=== PATIENT | male | born 1980 | race Two or more races ===

== ENCOUNTER 2021-07-03 08:45 | Emergency (ER) | payer SELFPAY ==
[2021-07-03] MEDS ORDERED: MAG HYDROX/AL HYDROX/SIMETH 30 ML UDC PO STA (09:16)
[2021-07-03] MEDS ORDERED: LIDOCAINE VISCOUS 2% 15 ML UDC MM STA (09:16)
--- NOTE | 2021-07-03 09:18 | ED Physician Documentation ---
PD HPI ABD PAIN - Stated complaint Stated Complaint: ABD PX SENT BY - Chief complaint Chief Complaint: Abd Pain - History obtained from History obtained from: Patient - History of Present Illness Timing - onset: How many days ago (3) Timing - duration: Days (3) Timing - details: Gradual onset, Still present Quality: Aching, Pain Location: Epigastric Radiation: Lower back Improved by: Other (nothing) Associated symptoms: Nausea. No: Vomiting, Diarrhea, Constipation Similar symptoms before: Has not had sx before Recently seen: Clinic - Additional information Additional information: Previously well 40-year-old male has developed some epigastric abdominal pain over the past 3 days. Of his feeling of fullness and discomfort. He has reduced the amount that he is eating and he has not found modifying factors for this. He did try 1 Pepcid AC and he tried some Pepto-Bismol neither of these seem to help. He does state that he has been drinking more than usual drinks wine and he has not been able to do this for the last 2 days. He also indicates that he does not take ibuprofen or Aleve.He was evaluated at the urgent care [facility] (formerly [facility]) and sent to the emergency department for evaluation. He is reporting dark stool. Review of Systems Constitutional: denies: Fever Ears: denies: Ear pain Nose: denies: Congestion Throat: denies: Sore throat Cardiac: denies: Chest pain / pressure Respiratory: denies: Dyspnea, Cough GI: reports: Abdominal Pain, Nausea. denies: Vomiting, Constipation, Diarrhea : denies: Dysuria, Frequency Skin: denies: Rash Musculoskeletal: denies: Neck pain, Back pain, Extremity pain Neurologic: denies: Generalized weakness, Focal weakness, Numbness PD PAST MEDICAL HISTORY - Present Medications Home Medications: Ambulatory Orders Medication Instructions Recorded Confirmed Sucralfate [Carafate] 1 gm PO ACHS #60 tablet 07/03/21 - Allergies Allergies/Adverse Reactions: Allergies Allergy/AdvReac Type Severity Reaction Status Date / Time Sulfa (Sulfonamide Allergy Anaphylaxis Verified 07/03/21 08:57 Antibiotics) PD ED PE NORMAL - Vitals Vital signs reviewed: Yes (normal ) - General General: Alert and oriented X 3, No acute distress, Well developed/nourished - HEENT HEENT: Atraumatic, PERRL, EOMI - Neck Neck: Supple, no meningeal sign, No bony TTP - Cardiac Cardiac: RRR, No murmur - Respiratory Respiratory: No respiratory distress, Clear bilaterally - Abdomen Abdomen: Normal bowel sounds, Soft, Non distended, No organomegaly, Other (mild epigastric tenderness) - Back Back: No CVA TTP, No spinal TTP - Derm Derm: Normal color, Warm and dry, No rash - Extremities Extremities: No deformity, No edema - Neuro Neuro: Alert and oriented X 3, 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, No motor deficit, No sensory deficit, Normal speech Eye Opening: Spontaneous Motor: Obeys Commands Verbal: Oriented GCS Score: 15 - Psych Psych: Normal mood, Normal affect Results - Vitals Vitals: Vital Signs - 24 hr 07/03/21 07/03/21 08:53 09:12 Temperature 36.5 C Heart Rate 65 72 Respiratory 14 16 Rate Blood Pressure 114/75 126/86 H O2 Saturation 99 100 Oxygen O2 Source Room air - Labs Labs: Laboratory Tests 07/03/21 07/03/21 07/03/21 09:09 09:09 09:30 WBC 4.4 L RBC 4.88 Hgb 15.4 Hct 44.0 MCV 90.2 MCH 31.6 H MCHC 35.0 RDW 11.7 L Plt Count 239 MPV 10.0 Neut # (Auto) 2.9 Lymph # (Auto) 1.0 L [place] # (Auto) 0.4 Eos # (Auto) 0.0 Baso # (Auto) 0.0 Absolute Nucleated RBC 0.00 Nucleated RBC % 0.0 Sodium 138 Potassium 3.9 Chloride 101 Carbon Dioxide 28 Anion Gap 9.0 BUN 14 Creatinine 0.9 Estimated GFR (MDRD) 94 Glucose 107 H Calcium 8.5 Total Bilirubin 0.8 AST 25 ALT 18 Alkaline Phosphatase 47 Total Protein 6.9 Albumin 4.1 Globulin 2.8 Albumin/Globulin Ratio 1.5 Lipase 25 Urine Color YELLOW Urine Clarity CLEAR Urine pH 5.5 Ur Specific Colver >=1.030 H Urine Protein NEGATIVE Urine Glucose (UA) NEGATIVE Urine Ketones NEGATIVE Urine Occult Blood NEGATIVE Urine Nitrite NEGATIVE Urine Bilirubin NEGATIVE Urine Urobilinogen 0.2 (NORMAL) Ur Leukocyte Esterase NEGATIVE Ur Microscopic Review NOT INDICATED Urine Culture Comments NOT INDICATED PD MEDICAL DECISION MAKING - ED course Complexity details: reviewed results, re-evaluated patient, considered d ifferential, d/w patient ED course: 40-year-old male with peptic ulcer symptoms is administered a GI cocktail consisting of viscous lidocaine and Mylanta which resolves the symptoms. He subsequently administered Carafate and Protonix. Is diagnosed with gastritis and given instructions for gastritis versus ulcer. We will put him on a course of acid reducing medication and Carafate. I felt the patient's likelihood of bleeding from this was low as his BUN was normal and his blood counts are normal as well. Departure - Departure Disposition: 01 Home, Self Care Clinical Impression: Gastritis Qualifiers: Gastritis type: unspecified gastritis Chronicity: acute Gastritis bleeding: without bleeding Qualified Code(s): K29.00 - Acute gastritis without bleeding Condition: Stable Instructions: ED PUD Vs Gastritis Follow-Up: Fco Harris MD [Provider Admit Priv/Credential] - Prescriptions: Sucralfate [Carafate] 1 gm PO ACHS #60 tablet Comments: Wilder, it looks like you have an irritation to the lining of your stomach or an ulcer and the treatment for these are to use something to reduce the acid in your stomach and the recommendation is to take some Pepcid AC available [id number]. In addition I have prescribed some Carafate which is a barrier medicine that aids in the healing. It has been escribed to [facility] in [facility]. My recommendation is to take these medicines for 2 weeks, reduce the amount of alcohol you are consuming, and if you have recurrence of your symptoms following treatment, follow-up with the primary care doctor for potential referral for endoscopy.
[2021-07-03 09:19] LABS: BASOPHILS % (AUTO) 0.2 %; EOSINOPHILS % (AUTO) 0.7 %; HGB - HEMOGLOBIN 15.4 g/dL (14.0-18.0); LYMPHOCYTES % (AUTO) 23.3 %; MEAN CORPUSCULAR HEMOGLOBIN 31.6 pg (27.0-31.0); MEAN CORPUSCULAR VOLUME 90.2 fL (80.0-94.0); MONOCYTES # (AUTO) 0.4 10^3/uL (0.0-1.0); MONOCYTES % (AUTO) 9.1 %; NEUTROPHILS # (AUTO) 2.9 10^3/uL (1.5-6.6); NEUTROPHILS % (AUTO) 66.5 %; PLT - PLATELET COUNT 239 10^3/uL (130-450); RED BLOOD COUNT 4.88 10^6/uL (4.70-6.10); RED CELL DISTRIBUTION WIDTH 11.7 % (12.0-15.0); WHITE BLOOD COUNT 4.4 x10^3/uL (4.8-10.8)
[2021-07-03 09:31] LABS: ALBUMIN 4.1 g/dL (3.2-5.5); ALBUMIN/GLOBULIN RATIO 1.5 (1.0-2.2); BILIRUBIN,TOTAL 0.8 mg/dL (0.2-1.0); CALCIUM 8.5 mg/dL (8.5-10.3); CREATININE 0.9 mg/dL (0.6-1.2); POTASSIUM 3.9 mmol/L (3.5-5.0); TOTAL PROTEIN 6.9 g/dL (6.7-8.2)
[2021-07-03 09:47] LABS: BILIRUBIN,URINE NEGATIVE (NEGATIVE); GLUCOSE, URINE (UA) NEGATIVE (NEGATIVE); KETONES,URINE (UA) NEGATIVE (NEGATIVE); LEUKOCYTE ESTERASE, URINE NEGATIVE (NEGATIVE); NITRITE,URINE NEGATIVE (NEGATIVE); OCCULT BLOOD,URINE NEGATIVE (NEGATIVE); PH,URINE 5.5 PH (5.0-7.5); PROTEIN,URINE NEGATIVE (NEGATIVE); UROBILINOGEN,URINE 0.2 (NORMAL) E.U./dL (NORMAL)
[2021-07-03 09:50] LABS: CLARITY,URINE CLEAR (CLEAR)
[2021-07-03] MEDS ORDERED: SUCRALFATE 1 GM/10 ML UDC PO STA (09:50)
[2021-07-03] MEDS ORDERED: PANTOPRAZOLE 40 MG VIAL IVP STA (09:50)
[2021-07-03 10:27] VITALS: BP 129/76
== END 2021-07-03 10:27 | disposition home or self-care (01) ==
LOC: ED 08:45
DX: K29.00 Acute gastritis without bleeding (principal)
CPT/HCPCS: 36415; 80053; 81003; 83690; 85025; 96374; 99282; 99283; A9270; 81001; 87086

== ENCOUNTER 2022-04-15 09:19 | Outpatient (CLI) | payer OTHER ==
--- NOTE | 2022-04-15 11:12 | XRAY Report ---
PROCEDURE: Elbow 3 View RT INDICATIONS: R ELBOW PX TECHNIQUE: 3 views of the elbow were acquired. COMPARISON: None FINDINGS: Bones: No fractures or dislocations. A small bony spur is noted at the distal humeral metadiaphysis seen only on the lateral view. No other suspicious bony lesions. Soft tissues: No elbow joint effusion. No suspicious soft tissue calcifications. IMPRESSION: Bony spur at the distal right humeral metadiaphysis. If the patient endorses focal pain in this regio n, further characterization with MRI with and without contrast is recommended as neoplasm cannot be e xcluded. Differential considerations include posttraumatic sequela. Reviewed by: Jil Bey MD on 04/15/2022 11:11 AM PST Approved by: Jil Bey MD on 04/15/2022 11:11 AM PST Station ID: [id number]
== END 2022-04-15 09:20 | disposition home or self-care (01) ==
LOC: DI.N 09:19
PROVIDERS: ATTEND Nurse Practitioner Family
DX: M77.8 Other enthesopathies, not elsewhere classified (principal)

== ENCOUNTER 2022-04-28 10:26 | Emergency (ER) | payer OTHER ==
[2022-04-28 11:01] VITALS: BP 130/86
[2022-04-28] MEDS ORDERED: LIDOCAINE 1% 2 ML VIAL SUBQ STA (11:20)
[2022-04-28] MEDS ORDERED: TETANUS/DIPHTHERIA/PERTUSSIS 0.5 ML SYRINGE IM ONE (11:25)
--- NOTE | 2022-04-28 11:33 | ED Physician Documentation ---
PD HPI LOWER EXT INJURY - Stated complaint Stated Complaint: RT TOE INJ - Chief complaint Chief Complaint: Trauma Ext - History obtained from History obtained from: Patient - Additional information Additional information: This is a 41-year-old male who was seen today at the gym. He states his feet are cold and he did not quite feel what happened but he States he pushed off memantine and noted that he had an injury to the right great toe. He states he thought he saw the bone and he pushed something back in. He is not sure if he cut it on something or if it just slipped across the wrestling mat. He denies any other injuries. States he is up-to-date on his tetanus. He is not diabetic. PD PAST MEDICAL HISTORY - Past Medical History Cardiovascular: None Respiratory: None Neuro: None Endocrine/Autoimmune: None GI: None : None HEENT: None Psych: None Musculoskeletal: None Derm: None - Past Surgical History Past Surgical History: No - Present Medications Home Medications: Ambulatory Orders Medication Instructions Recorded Confirmed Sucralfate [Carafate] 1 gm PO ACHS #60 tablet 07/03/21 - Allergies Allergies/Adverse Reactions: Allergies Allergy/AdvReac Type Severity Reaction Status Date / Time Sulfa (Sulfonamide Allergy Anaphylaxis Verified 04/28/22 11:01 Antibiotics) - Social History Does the pt smoke?: No Smoking Status: Never smoker Does the pt drink ETOH?: Yes Does the pt have substance abuse?: Yes - Immunizations Immunizations are current?: Yes PD ED PE NORMAL - Vitals Vital signs reviewed: Yes - General General: Alert and oriented X 3, No acute distress, Well developed/nourished - Derm Derm: Normal color, Warm and dry, Other (3 cm laceration starts on the dorsum of the right great toe and wraps around to the lateral aspect of the great toe.) - Extremities Extremities: No deformity, Normal ROM s pain, No edema, Other (There is no obvious toe deformity.) - Neuro Neuro: Alert and oriented X 3 Eye Opening: Spontaneous Motor: Obeys Commands Verbal: Oriented GCS Score: 15 Results - Vitals Vitals: Vital Signs - 24 hr 04/28/22 10:56 Temperature 36.4 C L Heart Rate 98 Respiratory 16 Rate Blood Pressure 130/86 H O2 Saturation 100 Oxygen O2 Source Room air Procedures - Laceration (location) Toe right Dorsal Length in cm: 4 Wound type: Linear Neurovascular status: Sensory intact, Motor intact, Vascular intact Tendon involvement: Tendon intact Anesthesia: Lidocaine 1% Wound preparation: Hibiclens, Irrigated copiously NS Skin layer closure: Nylon, Sutures - enter # (9) Other: Patient tolerated well, No complications, Neurovascular intact, Dressing applied, Tetanus UTD PD MEDICAL DECISION MAKING - ED course Complexity details: reviewed results, d/w patient ED course: This is a healthy 41-year-old male who presented with a right great toe laceration as per HPI. The laceration was anesthetized locally and cleaned thoroughly with normal saline and Hibiclens and repaired as described above. We did obtain an x-ray which is negative for fracture. A dressing was applied and he was advised on home wound care instructions as well as to follow-up with his PCP in 7 to 10 days for suture removal. Departure - Departure Clinical Impression: Toe laceration Qualifiers: Encounter type: initial encounter Toe: great toe Damage to nail status: without damage Foreign body presence: without foreign body Laterality: right Qualified Code(s): S91.111A - Laceration without foreign body of right great toe without damage to nail, initial encounter Condition: Good Instructions: ED Laceration Foot Comments: You presented with a toe laceration. We sutured it and the sutures will need to be removed in 10-14 days. Please keep the area clean with gentle soap and water but otherwise Keep dry and do not soak. Return for any signs of infection.
--- NOTE | 2022-04-28 12:01 | XRAY Report ---
PROCEDURE: Toe(s) RT INDICATIONS: injury, eval for open fx TECHNIQUE: 3 views of the right toe(s) acquired. COMPARISON: None. FINDINGS: Bones: No fractures or dislocations. No suspicious bony lesions. Soft tissues: Great toe laceration is seen. IMPRESSION: Great toe laceration, without an associated fracture identified. Reviewed by: Robe Norwood MD on 04/28/2022 10:59 AM [facility] Approved by: Robe Norwood MD on 04/28/2022 10:59 AM [facility] Station ID: [id number]
== END 2022-04-28 12:08 | disposition home or self-care (01) ==
LOC: ED 10:26
DX: S91.111A Laceration without foreign body of right great toe without damage to nail, initial encounter (principal); W45.8XXA Other foreign body or object entering through skin, initial encounter; Y93.72 Activity, wrestling; Y92.39 Other specified sports and athletic area as the place of occurrence of the external cause
CPT/HCPCS: 12002; 99283